=== PATIENT | female | born 1975 | race Two or more races ===

== ENCOUNTER 2019-05-31 17:57 | Emergency (ER) | payer SELFPAY ==
[~2019-05-31] VITALS: Ht 157.5 cm; Wt 63.5 kg
[2019-05-31 18:25] VITALS: BP 114/77
[2019-05-31] MEDS ORDERED: diphenhdrAMINE HCL 25 MG CAP PO ONE (22:15)
[2019-05-31] MEDS ORDERED: cefTRIAXone SOD 1,000 MG VL IM ONE (22:15)
== END 2019-05-31 23:15 | disposition home or self-care (01) ==
LOC: ER 17:57
DX: L02.212 Cutaneous abscess of back [any part, except buttock and flank] (principal)
CPT/HCPCS: 96372; 99283; J0696

== ENCOUNTER 2025-05-08 08:16 | Emergency (ER) | payer MEDICAID, OTHER ==
[~2025-05-08] VITALS: Ht 167.6 cm; Wt 65.1 kg
[2025-05-08 08:35] VITALS: BP 130/90; PULSE 74; RESP 16; TEMP 98.3; O2SAT 99
== END 2025-05-08 11:26 | disposition left against medical advice (07) ==
LOC: ER 08:16
DX: K62.89 Other specified diseases of anus and rectum (principal); Z53.21 Procedure and treatment not carried out due to patient leaving prior to being seen by health care provider